=== PATIENT | male | born 1960 | race Asian ===

== ENCOUNTER → 2022-01-20 16:09 | Outpatient (CLI) | payer OTHER, SELFPAY ==
--- NOTE | 2022-01-20 16:15 | DI.RAD.S_ITS ---
PROCEDURE: XR LUMBAR SPINE 2-3V INDICATIONS: back pain TECHNIQUE: 3 views of the lumbar spine were acquired. COMPARISON: None. FINDINGS: Bones: 5 jea-yed-ucsyowc vertebrae are present. Trace levo curvature centered at the L2 level. Trace spondylolisthesis L4-L5. Endplate osteophytes indicating mild early multilevel disc degeneration. Mild L4-L5 and L5-S1 facet joint arthropathy. No vertebral body compression fractures. No suspicious bony lesions. Soft tissues: Overlying bowel gas pattern is normal. No suspicious soft tissue calcifications. IMPRESSION: Mild multilevel spondylosis. Dictated by: Andi Kearney Val Interpreted: Jose Guadalupe Mcmahon MD on 01/20/2022 at 16:30 Transcribed by: XAVIER on 01/20/2022 at 16:31 Approved by: Jose Guadalupe Mcmahon M.D. on 01/20/2022 at 16:32
== END ==
PROVIDERS: PCP Family Medicine; Referring Provider Family Medicine; Visit Provider Family Medicine
DX: M47.26 Other spondylosis with radiculopathy, lumbar region (principal); M47.27 Other spondylosis with radiculopathy, lumbosacral region
CPT/HCPCS: 72100

== ENCOUNTER → 2022-10-03 09:42 | Outpatient (CLI) | payer OTHER, SELFPAY ==
[2022-10-03 11:00] LABS: Creatinine Urine Random 279.4 mg/dL
[2022-10-03 11:05] LABS: Microalbumi Creatinin Ratio Ur 6.4 ug/mg CR (<30); Microalbumin Urine Random 1.8 mg/dL (0-1.6)
[2022-10-03 11:31] LABS: Alanine Aminotransferase 20 IU/L (<50); Albumin 4.2 g/dL (3.5-5.0); Albumin Globulin Ratio 1.2 (1.0-2.8); Alkaline Phosphatase 70 U/L (38-126); Aspartate Aminotransferase 22 IU/L (17-59); BUN Creatinine Ratio 17.3 (6-22); Bilirubin Total 0.9 mg/dL (0.2-1.3); Blood Urea Nitrogen 14 mg/dL (9-20); Calcium 8.6 mg/dL (8.4-10.2); Carbon Dioxide 27 mmol/L (22-32); Chloride 102 mmol/L (98-107); Cholesterol 181 mg/dL (140-199); Estimated Glomerular Filt Rate > 60 mL/min (>60); Globulin 3.4 g/dL (1.7-4.1); Glucose 112 mg/dL (80-110); HDL Cholesterol 40 mg/dL (40-60); HEMOLYSIS < 15 (0-50); LDL Cholesterol Calculated 115 mg/dL (<100); Potassium 3.5 mmol/L (3.4-5.1); Sodium 138 mmol/L (137-145); Total Protein 7.6 g/dL (6.3-8.2); Triglycerides 128 mg/dL (35-150); VLDL Cholesterol Calculated 26 mg/dL (2-30)
[2022-10-03 17:59] LABS: Hemoglobin A1C% w Est Avg Glu 6.5 % (4.0-6.0)
== END ==
PROVIDERS: PCP Family Medicine; Referring Provider Family Medicine; Visit Provider Family Medicine
DX: E11.9 Type 2 diabetes mellitus without complications (principal); E78.5 Hyperlipidemia, unspecified; I10 Essential (primary) hypertension
CPT/HCPCS: 36415; 80053; 80061; 82043; 82570; 83036

== ENCOUNTER 2022-10-28 12:25 | Emergency (ER) | payer OTHER, SELFPAY ==
[2022-10-28 12:33] VITALS: BP 187/95; PULSE 75; RESP 18; TEMP 37.2; O2SAT 97; BMI 30.4
--- NOTE | 2022-10-28 12:37 | DI.RAD.S_ITS ---
PROCEDURE: XR CHEST 2V INDICATIONS: cough, wheezing TECHNIQUE: 2 views of the chest were acquired. COMPARISON: None. FINDINGS: Surgical changes and devices: None. Lungs and pleura: Lungs are clear. No pleural effusions or pneumothorax. Mediastinum: Mediastinal contours are normal. Heart size is normal. Atherosclerotic vascular calcification noted in the aortic arch. Bones and chest wall: No suspicious bony abnormalities. Soft tissues appear unremarkable. IMPRESSION: No acute cardiopulmonary findings Approved by: Reginaldo Robles M.D. on 10/28/2022 at 12:47
[2022-10-28 13:26] LABS: Influenza A - CEPHEID Flu A NEGATIVE (NEGATIVE); Influenza B - CEPHEID Flu B NEGATIVE (NEGATIVE); Respiratory Syncytial Virus Negative (Negative)
[2022-10-28 13:27] LABS: COVID-19 CEPHEID 4-PLEX PCR Negative (Negative)
--- NOTE | 2022-10-28 15:21 | ED.URI ---
HPI - URI/Sore Throat General Chief Complaint: Upper Respiratory Symptoms Stated Complaint: wheezing and coughing x7days Time Seen by Provider: 10/28/22 15:21 Source: patient Mode of arrival: Ambulatory Limitations: no limitations History of Present Illness HPI Narrative: This is a 62-year-old male history of hypertension, dyslipidemia, diabetes and chronic tobacco use who presents with complaint of wheezing and coughing for the past 7 days. Patient states he is had nasal congestion for the past 7 days, patient denies any fevers he is had chest tightness particularly night, he states he is had coughing fits that will resolve. He denies any chest pain otherwise. He states he feels short of breath when he coughs a lot. He denies diaphoresis. Denies nausea or vomiting. He states his ears have felt very full, patient denies any swelling of his extremities. No known drug allergies. Patient was smoking daily until 2 days ago, he does not use any illicit. He is accompanied by his . Dr. Queen is his primary care. Related Data Home Medications Medication Instructions Recorded Confirmed amlodipine 10 mg tablet 10 mg PO DAILY 10/28/22 10/28/22 losartan 100 mg tablet 100 mg PO DAILY 10/28/22 10/28/22 metformin 500 mg tablet 500 mg PO DAILY 10/28/22 10/28/22 simvastatin 20 mg tablet 20 mg PO BEDTIME 10/28/22 10/28/22 Previous Rx's Medication Instructions Recorded beclomethasone dipropionate 40 2 inh inhalation BID #10.6 grams 10/28/22 mcg/actuation HFA breath activated aerosol (Qvar RediHaler) prednisone 20 mg tablet 40 mg PO DAILY #10 tabs 10/28/22 Allergies Allergy/AdvReac Type Severity Reaction Status Date / Time No Known Drug Allergies Allergy Verified 10/28/22 12:35 Review of Systems Review of Systems ROS Unobtainable: All systems reviewed & are unremarkable except as noted in HPI and below Patient History Social History Smoking Status: Current every day smoker Smoking Status: Current every day smoker alcohol intake frequency: other Substance Use Type: does not use Exam Narrative Exam Narrative: GEN: well nourished, well appearing male, alert and oriented x 3, patient appears to be in mild distress. HEENT: Atraumatic, pupils are equal round reactive to light, extraocular movements are intact, nares are clear, TMs are retracted bilaterally with small amount of fluid, no erythema, canals appear normal with no swelling. Throat is clear without any exudates, erythema, tonsillar enlargement or uvular deviation HEART: Regular rate and rhythm without murmur, clicks, rubs. LUNGS:Lungs have wheezes bilaterally, good air movement on both sides, no rales, crackles, chest moves symmetrically. No tachypnea accessory muscle use patient speaks in full sentences. ABD:bowel sounds normal, soft, non-tender, no guarding, rebound, rigidity, no masses noted, no hepatosplenomegaly :No CVA tenderness MSCL: Non-tender, no muscle atrophy, muscles strength 5/5 upper and lower extremities, full range of motion, normal gait NEURO:CN 2-12 intact, sensation normal SKIN: No rash, erythema or other skin changes noted. Initial Vital Signs Initial Vital Signs: Vital Signs Temperature 98.9 F 10/28/22 12:33 Pulse Rate 75 10/28/22 12:33 Respiratory Rate 18 10/28/22 12:33 Blood Pressure 187/95 H 10/28/22 12:33 Pulse Oximetry 97 10/28/22 12:33 Oxygen Delivery Method 10/28/22 12:33 Course Orders Ordered: ED Orders 10/28/22 12:30 Covid-19 + FLU A/B + RSV - PCR Stat 10/28/22 12:37 Chest [XR chest 2V] Stat Discontinued Medications Albuterol (Albuterol Hfa Prepack) 1 box MISC SEEINSTR ONE Stop: 10/28/22 15:28 Vital Signs Vital signs: Vital Signs - 8 hr 10/28/22 12:33 10/28/22 15:46 Temperature 98.9 F Pulse Rate 75 74 Respiratory Rate 18 18 Blood Pressure 187/95 H 155/81 H Pulse Oximetry 97 96 Oxygen Delivery Method Room Air Room Air MDM - URI/Sore Throat Lab Data Labs: Lab Results 10/28/22 Range/Units 12:30 SARS-CoV-2 (PCR) Negative (Negative) Influenza A (RT-PCR) Flu a negative (NEGATIVE) Influenza B (RT-PCR) Flu b negative (NEGATIVE) RSV (PCR) Negative (Negative) Imaging Data Chest x-ray: Radiologist's Impression: [facility] [address] [place] [address] XRay Report Signed Patient: Adryan Palmer MR#: [id number] : 1960 Acct:[id number] Age/Sex: 62 / M Date of Service: 10/28/22 Loc: ED Accession Number: [id number] ?? Procedure: XR chest 2V Ordering Provider: Mary Queen MD PROCEDURE:? XR CHEST 2V ? INDICATIONS:? cough, wheezing ? TECHNIQUE:? 2 views of the chest were acquired.? ? COMPARISON:? None. ? FINDINGS:? ? Surgical changes and devices:? None.? ? Lungs and pleura:? Lungs are clear.? No pleural effusions or pneumothorax.? ? Mediastinum:? Mediastinal contours are normal.? Heart size is normal.? Atherosclerotic vascular calcification noted in the aortic arch. ? Bones and chest wall:? No suspicious bony abnormalities.? Soft tissues appear unremarkable.? ? IMPRESSION:? No acute cardiopulmonary findings ? ? ? Approved by: Reginaldo Robles M.D. on 10/28/2022 at 12:47? [facility] Narrative Medical decision making narrative: This is a 62-year-old male who comes emergency department with complaint of chest tightness and wheezing. Patient has a history of hypertension, diabetes, dyslipidemia chronic tobacco user and has had a recent symptoms consistent with upper respiratory viral infection. On exam patient has wheezes throughout he is moving air well he does not appear in distress and states that he had an inhaler that he borrowed from someone in the past which had been helpful when he had been sick before. Does use Flovent intranasally every day but does not use any form of steroid inhaler daily. Patient's chest x-ray is negative, COVID, influenza and RSV are negative. Suspect patient is having reactive airway kicked off by a recent viral infection. Patient was given inhaler with spacer and albuterol was helpful here in the department. Plan for short course of oral steroid and albuterol as needed, discussed steroid inhaler with patient but we also discussed if quite expensive can just do oral steroids. Discharge Plan Departure Patient Disposition: Home Clinical Impression: Upper respiratory infection, Exacerbation of reactive airway disease Instructions: DI for Reactive Airway Disease-Adult Activity Restrictions/Additional Instructions: You appear to be having reactive airway disease or COPD from your tobacco use that has been worsened recent by your recent upper respiratory infection. Good job stopping smoking. Use albuterol inhaler 2-4 puffs every 4 hours as needed. It may be helpful to have a steroid inhaler, use in the morning and evening whether you feel good or bad daily. If the steroid inhaler is too expensive you can just take oral steroids for the short-term. Take oral steroids once daily until gone. Prescription sent to [facility] in [place]. Please return for worsening chest pain, shortness of breath, lightheadedness or passing out, sweatiness or diaphoresis, new swelling of extremities, increasing difficulty breathing, persistent vomiting or other new or concerning changes. Prescriptions: New Qvar RediHaler 40 mcg/actuation HFA aerosol breath activated 2 inh inhalation BID Qty: 10.6 0RF Rx Instructions: administer with spacer prednisone 20 mg tablet 40 mg PO DAILY Qty: 10 0RF No Action metformin 500 mg tablet 500 mg PO DAILY Label Comments: TAKE 1 TABLET BY MOUTH IN THE EVENING WITH MEALS amlodipine 10 mg tablet 10 mg PO DAILY Label Comments: TAKE 1 TABLET BY MOUTH ONCE DAILY simvastatin 20 mg tablet 20 mg PO BEDTIME Label Comments: TAKE 1 TABLET BY MOUTH ONCE DAILY AT NIGHT losartan 100 mg tablet 100 mg PO DAILY Referrals: Mary Queen MD [Primary Care Provider] -
[2022-10-28 15:46] VITALS: BP 155/81; PULSE 74; RESP 18; O2SAT 96
== END 2022-10-28 15:49 | disposition home or self-care (01) ==
PROVIDERS: Emergency Provider Emergency Medicine; PCP Family Medicine
DX: J06.9 Acute upper respiratory infection, unspecified (principal); J45.901 Unspecified asthma with (acute) exacerbation; Z20.822 Contact with and (suspected) exposure to COVID-19
CPT/HCPCS: 0241U; 71046; 99282; 99283

== ENCOUNTER → 2023-02-14 15:08 | Outpatient (CLI) | payer OTHER, SELFPAY ==
--- NOTE | 2023-02-16 16:27 | PM.PFT.1 ---
Pulmonary Function Test Referral & Results Date Patient Seen: 02/14/23 Results: The spirometry demonstrates an FVC of 2.69 L which is 69% of predicted. The FEV1 was measured at 2.25 L which is 77% of predicted. The FEV1/FVC ratio was 84 which is 110% of predicted. Following the administration of bronchodilator there was no notable change. Lung volumes show an SVC of 2.84 L which is 71% of predicted. The diffusing capacity was measured at 26.08 which is 104% of predicted. The maximum voluntary ventilation was minimally reduced Interpretation: This study demonstrates mild obstructive lung disease based on reduction FEV1 although FEV1/FVC ratio is preserved. There is also mild reduction in lung volumes suggesting the presence of mild restrictive lung disease. This may explain some of the abnormality in the FEV1 above Diffusing capacity is normal Clinical correlation suggested
== END ==
PROVIDERS: PCP Family Medicine; Referring Provider Family Medicine; Visit Provider Family Medicine
DX: R05.3 Chronic cough (principal); R05.1 Acute cough; Z87.891 Personal history of nicotine dependence; J98.8 Other specified respiratory disorders
CPT/HCPCS: 94060; 94726; 94729

== ENCOUNTER 2023-08-15 13:35 | Day surgery (SDC) | payer OTHER, SELFPAY ==
--- NOTE | 2023-08-15 | PATH_ITS ---
[facility] Accession Number: [id number] No. of containers..01 Tissue . 01 Material submitted: . colon - DESCENDING COLON POLYP . 01 Diagnosis: Descending Colon Polyp: Tubular adenoma. MRV 08/17/2023 1231 Local . 01 Electronically signed: . Chase Delacruz MD, PhD, Pathologist NPI- [id number] . 01 Gross description: . DESCENDING COLON POLYP: Received in formalin is multiple fragment(s) of del castillo, soft tissue measuring 2.0 x 1.0 x 0.3 cm in aggregate submitted entirely in 1 cassette(s) /AAY 08/16/2023 0157 Local . 01 Pathologist provided ICD-10: D12.4 . 01 CPT . 241235 Specimen Comment: A courtesy copy of this report has been sent to [phone] Performed at: 01 [facility] [address] [place] [address], [place], [place] [id number] MD Atul Christiansen MD Phone: [phone]
--- NOTE | 2023-08-15 14:26 | PM.HP.1 ---
History of Present Illness History of Present Illness Date Patient Seen: 08/15/23 Time Patient Seen: 14:26 Chief complaint: Colonoscopy Narrative: Adryan is a 63-year-old man who is here for colonoscopy. He has never had one before. No family history of colon cancer. He denies rectal bleeding or abnormal bowel function. [facility] Social History Smoking Status: Current every day smoker Meds Home Medications and Allergies Home Medications Medication Instructions Recorded Confirmed Type amlodipine 10 mg tablet 10 mg PO DAILY 10/28/22 10/28/22 History beclomethasone dipropionate 40 2 inh inhalation BID #10.6 grams 10/28/22 Rx mcg/actuation HFA breath activated aerosol (Qvar RediHaler) losartan 100 mg tablet 100 mg PO DAILY 10/28/22 10/28/22 History metformin 500 mg tablet 500 mg PO DAILY 10/28/22 10/28/22 History prednisone 20 mg tablet 40 mg (2 x 20 mg) PO DAILY #10 tabs 10/28/22 Rx simvastatin 20 mg tablet 20 mg PO BEDTIME 10/28/22 10/28/22 History sodium,potassium,mag sulfates 17.5 See Rx Instructions PO .COMPLEX 08/06/23 Rx gram-3.13 gram-1.6 gram oral soln #354 mL (Suprep Bowel Prep Kit) Allergies Allergy/AdvReac Type Severity Reaction Status Date / Time No Known Drug Allergies Allergy Verified 10/28/22 12:35 Exam Const General: No acute distress Resp Effort & Inspection: normal respiratory effort Assessment & Plan Assessment and plan (1) Colon cancer screening: Status: Acute Plan We reviewed the risks and benefits of colonoscopy for colon cancer screening and he would like to proceed.
[2023-08-15 14:31] VITALS: BMI 27.1
[2023-08-15 14:36] VITALS: BP 159/95; PULSE 74; RESP 16; TEMP 36.8; O2SAT 98
[2023-08-15] MEDS: LACTATED RINGERS 1,000 ML 42 ML IV (14:46)
--- NOTE | 2023-08-15 15:28 | PM.OP.COLON ---
Operative Date/Time/Diagnoses Date of procedure: 08/15/23 Time of procedure: 15:28 Pre-op diagnosis: Colon cancer screening Post-op diagnosis: same Procedure & Clinicians Study performed: Colonoscopy Same procedure as scheduled: Yes Surgeon: Parker Ramsey Procedure Notes Procedure in detail: Surgeon: Parker Ramsey MD Anesthesia: Brii Fall DO Procedure: The patient was brought to the endoscopy suite, placed in left lateral decubitus position. The patient was connected to monitoring devices. A time-out was performed. Sedation was administered. Once the patient was adequately sedated, a digital rectal exam was performed and was normal. The scope was then inserted and advanced to the cecum where the appendiceal orifice was identified and photographed. The scope was then slowly withdrawn over greater than 6 minutes. The mucosa was thoroughly inspected. There was a 8 mm polyp in the proximal descending colon removed with cold snare. There was a little bit of bleeding from the polypectomy site and a single hemoclip was applied with good effect. The scope was retroflexed in the rectum. No other abnormalities were found. The scope was straightened and removed. The patient was awakened and brought to recovery. Scope withdrawal time: 10 minutes Sedation time: 14 minutes EBL: 5 mL Findings: 8 mm polyp in the proximal descending colon Post-procedure Disposition: PACU
[2023-08-15 15:32] VITALS: BP 116/82; PULSE 80; RESP 15; TEMP 36.3; O2SAT 96
[2023-08-15 15:37] VITALS: BP 117/84; PULSE 73; RESP 17; O2SAT 96
[2023-08-15 15:42] VITALS: BP 125/88; PULSE 76; RESP 16; O2SAT 96
[2023-08-15 15:57] VITALS: BP 128/91; PULSE 71; RESP 16; TEMP 36.3; O2SAT 98
== END 2023-08-15 16:00 | disposition home or self-care (01) ==
PROVIDERS: PCP Family Medicine; Referring Provider Surgery; Visit Provider Surgery
PROC: 0DJD8ZZ Inspection of Lower Intestinal Tract, Via Natural or Artificial Opening Endoscopic (ICD-10-PCS; CPT 45378; principal; 2023-08-15 15:00)
DX: Z12.11 Encounter for screening for malignant neoplasm of colon (principal); D12.4 Benign neoplasm of descending colon
CPT/HCPCS: 45385; J2704

== ENCOUNTER → 2023-08-17 14:54 | Outpatient (CLI) | payer OTHER, SELFPAY ==
--- NOTE | 2023-08-17 | DI.CT.S_ITS ---
PROCEDURE: CT CHEST W CON INDICATIONS: Other diseases of bronchus, not elsewhere classified TECHNIQUE: After the administration of intravenous contrast, 5 mm thick sections acquired from the pulmonary apices to the posterior costophrenic angles. 1 mm axial lung, 5 mm thick coronal and sagittal reformats and 7 mm axial MIP were acquired. For radiation dose reduction, the following was used: automated exposure control, adjustment of mA and/or kV according to patient size. COMPARISON: [facility], CT, CT LOW DOSE LUNG CA SCREENING, 02/21/2023, 10:19. FINDINGS: Image quality: Excellent. Lungs and pleura: No acute air space opacities. Mild bibasilar atelectasis. No pleural effusions or pneumothorax. Central and peripheral airways are patent and normal in caliber. Previously described endobronchial filling defect within the medial segmental bronchus of the right lower lobe is no longer visualized and likely represented mucous secretions versus impaction. No mass seen. No evidence for postobstructive pneumonia. Airways are otherwise clear. Mediastinum: Heart size is normal. No pericardial effusion. Coronary atherosclerotic vascular calcifications are noted. No mediastinal or hilar adenopathy by size criteria. Thoracic aorta and central pulmonary arteries are normal in size. Atherosclerotic calcifications of the aortic arch are present.Esophagus is normal in caliber. No hiatal hernia. Bones and chest wall: No suspicious bony lesions. No vertebral body compression fractures. No axillary or supraclavicular adenopathy by size criteria. Thyroid gland is unremarkable . Abdomen: Visualized upper abdominal solid organs appear normal. Upper abdominal bowel loops are normal in caliber. IMPRESSION: Interval resolution of previously described endobronchial defect within the medial segmental bronchus of the right lower lobe. This likely represented mucous secretion/impaction. No endobronchial mass identified. Airways are clear. No acute cardiopulmonary abnormalities. Atherosclerosis. LUNG-RADS 1; recommend continued annual lung cancer screening with low dose chest CT, as long as the patient meets the published criteria. Dictated by: Prieto Paredes M.D. on 08/17/2023 at 16:51 Approved by: Prieto Paredes M.D. on 08/17/2023 at 16:58
== END ==
PROVIDERS: PCP Family Medicine; Referring Provider Family Medicine; Visit Provider Family Medicine
DX: J98.09 Other diseases of bronchus, not elsewhere classified (principal); I25.10 Atherosclerotic heart disease of native coronary artery without angina pectoris
CPT/HCPCS: 71260; Q9967

== ENCOUNTER → 2025-03-25 16:36 | Outpatient (CLI) | payer OTHER, SELFPAY ==
--- NOTE | 2025-03-25 16:38 | DI.RAD.S_ITS ---
PROCEDURE: XR CHEST 2V INDICATIONS: CHRONIC COUGH TECHNIQUE: 2 views of the chest were acquired. COMPARISON: [facility], CR, XR CHEST 2V, 10/28/2022, 12:41. FINDINGS: Surgical changes and devices: None. Lungs and pleura: Lungs are clear. No pleural effusions or pneumothorax. Mediastinum: Mediastinal contours are normal. Heart size is normal. Bones and chest wall: No suspicious bony abnormalities. Soft tissues appear unremarkable. IMPRESSION: No acute cardiopulmonary abnormality is seen. Dictated by: Alessandro Malik M.D. on 03/26/2025 at 14:50 Approved by: Alessandro Malik M.D. on 03/26/2025 at 14:51
== END ==
PROVIDERS: PCP Family Medicine; Referring Provider Family Medicine; Visit Provider Family Medicine
DX: R05.3 Chronic cough (principal); R06.2 Wheezing
CPT/HCPCS: 71046

== ENCOUNTER 2025-08-12 07:30 | Emergency (ER) | payer OTHER, SELFPAY ==
[2025-08-12 08:06] VITALS: BP 160/89; PULSE 77; RESP 16; TEMP 36.6; O2SAT 95
--- NOTE | 2025-08-12 08:09 | DI.RAD.S_ITS ---
PROCEDURE: XR CHEST 1V INDICATIONS: cough, congestion TECHNIQUE: One view of the chest was acquired. COMPARISON: [facility], CR, XR CHEST 2V, 03/25/2025, 16:34. [facility], CR, XR CHEST 2V, 10/28/2022, 12:41. FINDINGS AND IMPRESSION: Mild prominence of the interstitium diffusely, possibly atypical infection/bronchitis. No dense airspace disease or pleural effusion on this single view study. Unchanged mediastinal contours. Heart size is at the upper limit of normal. Degenerative osseous changes. Dictated by: Jericho Mccracken M.D. on 08/12/2025 at 8:41 Approved by: Jericho Mccracken M.D. on 08/12/2025 at 8:41
--- NOTE | 2025-08-12 08:14 | ED.URI ---
HPI - URI/Sore Throat General Chief Complaint: Upper Respiratory Symptoms Stated Complaint: Cough x 2 days Time Seen by Provider: 08/12/25 08:10 History of Present Illness HPI Narrative: Patient is a 65-year-old male history of asthma hypertension hyperlipidemia diabetes presenting to day with cough and difficulty breathing. Reports that he has had cough for about 5 days. Last night he had trouble breathing he fell asleep in the computer chair he fell over kind of hit his nose in his shoulder so he is having some pain there. He uses albuterol inhaler a couple of times but did not feel like it was working. He does not complain of chest tightness no fever or productive cough. Not on anticoagulation or antiplatelet medication. No loss of consciousness no nausea or vomiting. Related Data Home Medications ?Medication ?Instructions ?Recorded ?Confirmed amlodipine 10 mg tablet 10 mg PO DAILY 10/28/22 08/15/23 losartan 100 mg tablet 100 mg PO DAILY 10/28/22 08/15/23 metformin 500 mg tablet 500 mg PO DAILY 10/28/22 08/15/23 simvastatin 20 mg tablet 20 mg PO BEDTIME 10/28/22 08/15/23 Previous Rx's ?Medication ?Instructions ?Recorded sodium,potassium,mag sulfates 17.5 See Rx Instructions PO .COMPLEX 08/06/23 gram-3.13 gram-1.6 gram oral soln #354 mL (Suprep Bowel Prep Kit) amoxicillin 500 mg capsule 1,000 mg (2 x 500 mg) PO TID 5 08/12/25 days #30 caps azithromycin 250 mg tablet See Rx Instructions PO .COMPLEX #6 08/12/25 tabs prednisone 20 mg tablet 40 mg (2 x 20 mg) PO DAILY #10 tabs 08/12/25 Allergies Allergy/AdvReac Type Severity Reaction Status Date / Time No Known Drug Allergies Allergy Verified 08/15/23 14:30 Patient History Medical History (Updated 08/12/25 @ 09:38 by Erlinda Martinez DO) Diabetes mellitus, type 2 Social History household members: spouse alcohol intake: current alcohol intake frequency: holidays/special occasions only Exam Initial Vital Signs Initial Vital Signs: Vital Signs Temperature 97.8 F 08/12/25 08:06 Pulse Rate 77 08/12/25 08:06 Respiratory Rate 16 08/12/25 08:06 Blood Pressure 160/89 H 08/12/25 08:06 Pulse Oximetry 95 08/12/25 08:06 Oxygen Delivery Method Room Air 08/12/25 08:06 GENERAL: Alert 65-year-old male and in no acute distress. HEENT: Head atraumatic,EOMI, pupils reactive, face symmetric, moist mucous membranes CARDIOVASCULAR: Regular rate and rhythm without murmurs, rubs or gallops. RESPIRATORY: Coarse breath sounds bilaterally no significant wheezing no conversational dyspnea ABDOMEN: Soft, nontender. Normoactive bowel sounds all 4 quadrants. No guarding or rebound. EXTREMITIES: Normal range of motion, no clubbing or edema. Neurovascularly intact NEUROLOGICAL: Alert and oriented x4.Normal gait and speech. Cranial nerves II through XII grossly intact. SKIN: Warm, dry, no laceration, no petechiae, no rashes or lesions. Course Orders Ordered: ED Orders 08/12/25 08:05 Covid-19 + FLU A/B + RSV - PCR Stat 08/12/25 08:09 XR chest 1V Stat Discontinued Medications Albuterol/Ipratropium (Albuterol/Ipratropium 3 Ml Ampul) 3 ml INH NOW ONE Stop: 08/12/25 08:15 Last Admin: 08/12/25 09:11 Dose: 3 ml Documented By: FERNANDO Prednisone (Prednisone 20 Mg Tablet) 40 mg PO NOW ONE Stop: 08/12/25 09:36 Last Admin: 08/12/25 09:56 Dose: 40 mg Documented By: CB Vital Signs Vital signs: Vital Signs - 8 hr 08/12/25 08:06 08/12/25 09:12 Temperature 97.8 F Pulse Rate 77 72 Respiratory Rate 16 20 Blood Pressure 160/89 H Pulse Oximetry 95 94 Oxygen Delivery Method Room Air Room Air MDM - URI/Sore Throat Lab Data Labs: Lab Results 08/12/25 Range/Units 08:05 SARS-CoV-2 (PCR) Negative (Negative) Influenza A (RT-PCR) Flu a negative (NEGATIVE) Influenza B (RT-PCR) Flu b negative (NEGATIVE) RSV (PCR) Negative (Negative) Imaging Data Chest x-ray: Radiologist's Impression: PROCEDURE: XR CHEST 1V INDICATIONS: cough, congestion TECHNIQUE: One view of the chest was acquired. COMPARISON: [facility], CR, XR CHEST 2V, 03/25/2025, 16:34. [facility], CR, XR CHEST 2V, 10/28/2022, 12:41. FINDINGS AND IMPRESSION: Mild prominence of the interstitium diffusely, possibly atypical infection/bronchitis. No dense airspace disease or pleural effusion on this single view study. Unchanged mediastinal contours. Heart size is at the upper limit of normal. Degenerative osseous changes. Dictated by: Jericho Mccracken M.D. on 08/12/2025 at 8:41 Approved by: Jericho Mccracken M.D. on 08/12/2025 at 8:41 MDM Narrative Medical decision making narrative: Patient is a 65-year-old male history of asthma hypertension hyperlipidemia diabetes presenting today with upper respiratory like symptoms. He did fall but no significant injury no need for further imaging. X-ray does show prominence of the interstitium atypical infection or bronchitis. Patient had DuoNeb treatment here he did have improvement is in his breathing. Vitals are stable not hypoxic not tachycardic. Suspect atrial nausea without sepsis. We will treat him with prednisone and antibiotics Discharge Plan Departure Patient Disposition: Home Clinical Impression: Atypical pneumonia Instructions: Atypical Pneumonia Activity Restrictions/Additional Instructions: *You have been diagnosed with atypical pneumonia *What to do: At this time make sure you are drinking enough fluids and resting *Continue to take medications as directed Albuterol inhaler 1-2 puffs every 4 hours if needed for coughing spells or shortness of breath--if you need this more often or it is not working we need to see you in the emergency department Prednisone 40 mg once a day for 5 days Azithromycin take as directed for 5 days Amoxicillin 1000 mg 3 times a day for 5 days *Follow up with your primary care provider in 2-3 days or call [phone] *Return to ER if you should have increasing chest pain shortness of breath weakness confusion or any new, worsening or concerning symptoms Prescriptions: New azithromycin 250 mg tablet See Rx Instructions PO .COMPLEX Qty: 6 0RF Rx Instructions: For 250 mg dose pack: take 500 mg today (day 1), then 250 mg for 4 days (days 2-5) prednisone 20 mg tablet 40 mg PO DAILY Qty: 10 0RF amoxicillin 500 mg capsule 1,000 mg PO TID 5 Days Qty: 30 0RF No Action sodium,potassium,mag sulfates [Suprep Bowel Prep Kit] 17.5-3.13-1.6 gram recon soln See Rx Instructions PO .COMPLEX Qty: 354 0RF Rx Instructions: take as directed by Physician metformin 500 mg tablet 500 mg PO DAILY Patient Comments: TAKE 1 TABLET BY MOUTH IN THE EVENING WITH MEALS amlodipine 10 mg tablet 10 mg PO DAILY Patient Comments: TAKE 1 TABLET BY MOUTH ONCE DAILY simvastatin 20 mg tablet 20 mg PO BEDTIME Patient Comments: TAKE 1 TABLET BY MOUTH ONCE DAILY AT NIGHT losartan 100 mg tablet 100 mg PO DAILY Referrals: Mary Queen MD [Primary Care Provider, Family Practice] Stand Alone Forms: Patient Portal/API
[2025-08-12 08:51] LABS: Influenza A - CEPHEID Flu A NEGATIVE (NEGATIVE); Influenza B - CEPHEID Flu B NEGATIVE (NEGATIVE)
[2025-08-12 08:52] LABS: COVID-19 CEPHEID 4-PLEX PCR Negative (Negative)
[2025-08-12] MEDS: ALBUTEROL/IPRATROPIUM 3 ML AMPUL INH (09:11)
[2025-08-12 09:12] VITALS: PULSE 72; RESP 20; O2SAT 94
== END 2025-08-12 10:07 | disposition home or self-care (01) ==
PROVIDERS: Emergency Provider Emergency Medicine; PCP Family Medicine
DX: J18.9 Pneumonia, unspecified organism (principal)
CPT/HCPCS: 71045; 87637; 94640; 99283